=== PATIENT | male | born 1970 | race Caucasian/White ===

== ENCOUNTER 2021-10-15 20:15 | Observation (INO) | payer SELFPAY ==
[2021-10-15 20:28] VITALS: BMI 26.7
[2021-10-15] MEDS ORDERED: Acetaminophen 325 MG TAB PO PRN (21:11)
[2021-10-15] MEDS ORDERED: Ondansetron PF 4 MG/2 ML Vial IVP PRN (21:11)
[2021-10-15] MEDS ORDERED: Senokot S 8.6-50 MG TAB PO PRN (21:11)
[2021-10-15] MEDS ORDERED: Calcium Carbonate 500 MG ChewTAB PO PRN (21:11)
[2021-10-15] MEDS ORDERED: HYDROcodone/Acetaminophen 5/325 mg Tablet PO PRN (21:11)
[2021-10-15] MEDS ORDERED: Magnesium Sulfate/D5W 1 GM/100 ML BAG IVPB SCH (21:15)
[2021-10-15] MEDS ORDERED: Sodium Chloride 0.45% 1,000 ML IV SCH (21:15)
[2021-10-15] MEDS ORDERED: Potassium Phosphate 30 MMOL in Sodium Chloride 0.9% 500 ML IVPB SCH (22:00)
[2021-10-16] MEDS ORDERED: traMADol HCl 50 MG TAB PO SCH (00:15)
[2021-10-16] MEDS ORDERED: Nicotine 21 MG PATCH TOP PRN (00:59)
[2021-10-16 01:06] LABS: SARS-CoV-2 NAA Rapid Test Not Detected (NotDetected)
[2021-10-16 05:10] LABS: Anion Gap 13 mmol/L (10-20); BUN (Urea Nitrogen) 9 mg/dL (8.9-20.6); CK (CPK) 333 U/L (30-200); Calc. Creatinine Clearance 154 mL/min (70-130); Calcium 8.5 mg/dL (7.8-10.44); Carbon Dioxide 25 mmol/L (22-29); Chloride 107 mmol/L (98-107); Estimated GFR 107; Glucose 92 mg/dL (70-105); Magnesium 2.2 mg/dL (1.6-2.6); Phosphorus 4.3 mg/dL (2.3-4.7); Sodium 141 mmol/L (136-145)
[2021-10-16 05:27] LABS: Hemoglobin 14.7 g/dL (13.5-17.5); Mean Corpuscular HGB CONC 33.5 g/dL (32.0-36.0); Mean Corpuscular Hemoglobin 29.6 pg (27.0-33.0); Mean Corpuscular Volume 88.3 fl (81.2-95.1); Mean Platelet Volume 10.9 fl (7.4-10.4); Platelet Count 306 10x3/uL (150-450); Red Blood Cell (RBC) Count 4.97 10x6/uL (4.32-5.72); White Blood Cell (WBC) Count 10.2 10x3/uL (3.5-10.5)
[2021-10-16 06:08] LABS: MDiff Complete? YES; Manual Diff?? YES
[2021-10-16 07:38] LABS: Band 2 % (5-11); Eosinophils 1 % (0-10); Lymphocytes 29 % (21-51); Monocytes 3 % (0-10); Neutrophil 59 % (42-75); Reactive Lymphocytes 6 % (0-10)
[2021-10-16 07:39] LABS: Platelet Morphology Comment Appears Adequate
[2021-10-16] MEDS ORDERED: Enoxaparin Sodium 40 MG/0.4 ML SYRINGE SC SCH (09:00)
[2021-10-16] MEDS ORDERED: PHOS-NAK 1 PKT PACK PO SCH (09:00)
[2021-10-16] MEDS ORDERED: Magnesium Oxide 400 MG TAB PO SCH (09:00)
[2021-10-16 12:19] VITALS: BP 134/75; TEMP 97.1
== END 2021-10-16 12:14 | disposition home or self-care (01) ==
LOC: INTOOBSV 20:15 → CSHTELE 20:15
PROVIDERS: ADMIT Internal Medicine; ATTEND Internal Medicine
DX: M62.82 Rhabdomyolysis (principal); E83.39 Other disorders of phosphorus metabolism; D72.829 Elevated white blood cell count, unspecified; F10.10 Alcohol abuse, uncomplicated; F17.210 Nicotine dependence, cigarettes, uncomplicated; Z20.822 Contact with and (suspected) exposure to COVID-19
CPT/HCPCS: 80048; 82306; 82550; 83735; 84100; 84484; 85025; 96374; 96376; G0378; J3475; J7030; U0002